=== PATIENT | male | born 1975 | race Two or more races ===

== ENCOUNTER 2021-03-16 16:43 | Emergency (ER) | payer OTHER ==
[~2021-03-16] VITALS: Ht 170.2 cm; Wt 70.3 kg
--- NOTE | 2021-03-16 17:55 | NUR ---
BAUTISTA stated pt is no longer in custody, he is free to leave at any time.
--- NOTE | 2021-03-16 18:00 | NUR ---
Pt stated he did not want to be seen in the ER and he is leaving. Pt ambulated out of ER with steady gait.
== END 2021-03-16 18:06 | disposition left against medical advice (07) ==
LOC: ER 16:47
DX: Z53.21 Procedure and treatment not carried out due to patient leaving prior to being seen by health care provider (principal)